=== PATIENT | female | born 1940 | race Hispanic/Latino ===

== ENCOUNTER 2017-09-10 14:51 | Emergency (ER) | payer OTHER ==
[2017-09-10 14:52] VITALS: BMI 26.4
[2017-09-10 15:22] VITALS: BP 129/81; PULSE 90; RESP 18; TEMP 98.1; O2SAT 98
[2017-09-10] MEDS ORDERED: Naproxen 500 MG TAB PO ONE ×2 (15:49→15:57)
--- NOTE | 2017-09-10 16:13 | ED PDOC ---
HPI: General Adult Time Seen by Provider: 09/10/17 15:40 Chief Complaint (Nursing): Palpitations Chief Complaint (Provider): Right shoulder pain History Per: Patient History/Exam Limitations: no limitations Onset/Duration Of Symptoms: Days (x 3) Current Symptoms Are (Timing): Still Present Additional Complaint(s): 77 year old female with a past medical history of osteoarthritis presents to the ED complaining of right shoulder pain, onset 3 days ago. Patient takes Advil without complete relief. Last dose was last night. Patient regularly takes calcium, vitamin D and aspirin. She denies any incident of fall, trauma or overexertion, chest pain and shortness of breath. PMD: Dr. Berot Pitts Past Medical History Reviewed: Historical Data, Nursing Documentation, Vital Signs Vital Signs: Last Vital Signs Temp 98.1 F 09/10/17 15:20 Pulse 90 09/10/17 15:20 Resp 18 09/10/17 15:20 BP 129/81 09/10/17 15:20 Pulse Ox 98 09/10/17 17:35 - Medical History PMH: Arthritis, HTN - Surgical History Other surgeries: tubal ligation (years ago), soft tissue back surgery - Family History Family History: States: Hypertension - Home Medications Home Medications: Ambulatory Orders Medication Instructions Recorded Acetaminophen [Tylenol 325mg tab] 650 mg PO QID #50 tab 09/10/17 Lidocaine 5% [Lidoderm] 1 patch TD DAILY #10 patch 09/10/17 - Allergies Allergies/Adverse Reactions: Allergies Allergy/AdvReac Type Severity Reaction Status Date / Time Penicillins Allergy RASH Verified 09/10/17 15:20 Review of Systems ROS Statement: Except As Marked, All Systems Reviewed And Found Negative Cardiovascular: Negative for: Chest Pain Respiratory: Negative for: Shortness of Breath Musculoskeletal: Positive for: Shoulder Pain (right) Physical Exam - Reviewed Nursing Documentation Reviewed: Yes Vital Signs Reviewed: Yes - Physical Exam Appears: Positive for: Non-toxic, No Acute Distress Head Exam: Positive for: ATRAUMATIC, NORMOCEPHALIC Skin: Positive for: Normal Color, Warm, Dry Eye Exam: Positive for: EOMI, Normal appearance, PERRL Neck: Positive for: Normal, Painless ROM, Supple Cardiovascular/Chest: Positive for: Regular Rate, Rhythm. Negative for: Murmur Respiratory: Positive for: Normal Breath Sounds. Negative for: Respiratory Distress Gastrointestinal/Abdominal: Positive for: Normal Exam, Soft. Negative for: Tenderness Extremity: Positive for: Normal ROM (full at right shoulder), Tenderness ( palpable tenderness in right shoulder) Neurologic/Psych: Positive for: Alert, Oriented. Negative for: Motor/Sensory Deficits - ECG O2 Sat by Pulse Oximetry: 98 (RA) Pulse Ox Interpretation: Normal - Radiology X-Ray: Viewed By Me, Read By Radiologist X-Ray Interpretation: No Acute Disease - Progress Re-evaluation Time: 17:30 Condition: Improving,but remains with symptoms Medical Decision Making Medical Decision Making: Time: 15:49 Impression: right shoulder pain most likely osteoarthritis. Less likely: possible fracture, calcification Initial Plan: --Naproxen 500 mg PO --right shoulder x-ray Right shoulder x-ray FINDINGS: BONES: Normal. No fracture. JOINTS: Normal. Glenohumeral and acromioclavicular joints preserved. No osteoarthritis. SOFT TISSUES: Normal. OTHER FINDINGS: None. IMPRESSION: Normal radiographs of the right shoulder. Scribe Attestation: Documented by Brielle Barnett, acting as a scribe for Elda Cowan MD. Provider Scribe Attestation: All medical record entries made by the Scribe were at my direction and personally dictated by me. I have reviewed the chart and agree that the record accurately reflects my personal performance of the history, physical exam, medical decision making, and the department course for this patient. I have also personally directed, reviewed, and agree with the discharge instructions and disposition. Disposition - Clinical Impression Clinical Impression: DJD of shoulder - Patient ED Disposition Is Patient to be Admitted: No Doctor Will See Patient In The: Office Counseled Patient/Family Regarding: Diagnosis, Need For Followup, Rx Given - Disposition Referrals: Berto Pitts MD [Staff Provider] - Disposition: Routine/Home Disposition Time: 17:54 Condition: STABLE Prescriptions: Acetaminophen [Tylenol 325mg tab] 650 mg PO QID #50 tab Lidocaine 5% [Lidoderm] 1 patch TD DAILY #10 patch Instructions: Osteoarthritis Forms: [facility] (Bulgarian) Print Language: REX HIGUER[place] Present On Arrival: Avelino
--- NOTE | 2017-09-10 17:29 | RAD ---
PROCEDURE: Radiographs of the Right Shoulder HISTORY: pain x 3 days COMPARISON: No prior. FINDINGS: BONES: Normal. No fracture. JOINTS: Normal. Glenohumeral and acromioclavicular joints preserved. No osteoarthritis. SOFT TISSUES: Normal. OTHER FINDINGS: None. IMPRESSION: Normal radiographs of the right shoulder.
== END 2017-09-10 18:25 | disposition home or self-care (01) ==
LOC: H.ER 14:51
DX: M19.011 Primary osteoarthritis, right shoulder (principal); I10 Essential (primary) hypertension; Z88.0 Allergy status to penicillin

== ENCOUNTER 2018-05-18 10:38 | Emergency (ER) | payer OTHER ==
[2018-05-18 10:38] VITALS: BMI 26.4
[2018-05-18 10:42] VITALS: TEMP 98.4; O2SAT 98
--- NOTE | 2018-05-18 10:54 | ED PDOC ---
HPI: Female Pain Time Seen by Provider: 05/18/18 10:48 Chief Complaint (Provider): Genitourinary Problem History Per: Patient History/Exam Limitations: no limitations Onset/Duration Of Symptoms: Days (x 3) Current Symptoms Are (Timing): Still Present Associated Symptoms: Urinary Symptoms (dysuria and frequency ) Additional Complaint(s): 77 year old female with a history of arthritis and hypertension presents to the ED with dysuria and frequency for the last 3 days. Patient denies fever, back pain and vomiting. PMD: Dr. Alessandro Nunez Past Medical History Reviewed: Historical Data, Nursing Documentation, Vital Signs Vital Signs: Last Vital Signs Temp 98.4 F 05/18/18 10:40 Pulse 85 05/18/18 10:40 Resp 17 05/18/18 10:40 BP 173/88 H 05/18/18 10:40 Pulse Ox 98 05/18/18 10:40 - Medical History PMH: Arthritis, HTN - Surgical History Surgical History: No Surg Hx - Family History Family History: States: Hypertension - Home Medications Home Medications: Ambulatory Orders Medication Instructions Recorded Acetaminophen [Tylenol 325mg tab] 650 mg PO QID #50 tab 09/10/17 Lidocaine 5% [Lidoderm] 1 patch TD DAILY #10 patch 09/10/17 Sulfamethoxazole/Trimethoprim 1 tab PO BID #20 tab 05/18/18 [Bactrim DS 800 mg-160 mg] - Allergies Allergies/Adverse Reactions: Allergies Allergy/AdvReac Type Severity Reaction Status Date / Time Penicillins Allergy RASH Verified 09/10/17 15:20 Review of Systems ROS Statement: Except As Marked, All Systems Reviewed And Found Negative Constitutional: Negative for: Fever Gastrointestinal: Negative for: Vomiting Genitourinary Female: Positive for: Dysuria, Frequency Musculoskeletal: Negative for: Back Pain Physical Exam - Reviewed Nursing Documentation Reviewed: Yes Vital Signs Reviewed: Yes - Physical Exam Appears: Positive for: Non-toxic, No Acute Distress Head Exam: Positive for: ATRAUMATIC, NORMAL INSPECTION, NORMOCEPHALIC Skin: Positive for: Normal Color, Warm, Dry Eye Exam: Positive for: EOMI, Normal appearance, PERRL Neck: Positive for: Normal, Painless ROM, Supple Cardiovascular/Chest: Positive for: Regular Rate, Rhythm. Negative for: Murmur Respiratory: Positive for: Normal Breath Sounds. Negative for: Respiratory Distress Gastrointestinal/Abdominal: Positive for: Normal Exam, Soft. Negative for: Tenderness Back: Positive for: Normal Inspection. Negative for: L CVA Tenderness, R CVA Tenderness Extremity: Positive for: Normal ROM (upper and lower extremities). Negative for: Tenderness, Deformity Neurologic/Psych: Positive for: Alert, Oriented (x 3). Negative for: Motor/Sensory Deficits - ECG O2 Sat by Pulse Oximetry: 98 (RA) Pulse Ox Interpretation: Normal Medical Decision Making Medical Decision Makin:53 Initial Plan: --urine dip --urine cx --UA ------- Scribe Attestation: Documented by Brielle Barnett, acting as a scribe for Matt Juarez MD Provider Scribe Attestation: All medical record entries made by the Scribe were at my direction and personally dictated by me. I have reviewed the chart and agree that the record accurately reflects my personal performance of the history, physical exam, medical decision making, and the department course for this patient. I have also personally directed, reviewed, and agree with the discharge instructions and disposition. Disposition - Clinical Impression Clinical Impression: Urinary tract infection - Patient ED Disposition Is Patient to be Admitted: No Counseled Patient/Family Regarding: Studies Performed, Diagnosis, Need For Followup, Rx Given - Disposition Referrals: [facility] [Outside] Olivier Sexton MD [Medical Doctor] - Disposition: Routine/Home Disposition Time: 11:09 Condition: FAIR Prescriptions: Sulfamethoxazole/Trimethoprim [Bactrim DS 800 mg-160 mg] 1 tab PO BID #20 tab Instructions: Urinary Tract Infections in Adults Print Language: PASHTO
[2018-05-18 11:28] LABS: SQUAMOUS EPITHIAL 2 /hpf (0-5); URINE BILIRUBIN NEGATIVE (NEGATIVE); URINE BLOOD MODERATE (NEGATIVE); URINE CLARITY CLEAR (Clear); URINE COLOR STRAW (YELLOW); URINE GLUCOSE (UA) NEG (Normal); URINE LEUKOCYTE ESTERASE NEG Leu/uL (Negative); URINE PROTEIN NEGATIVE (NEGATIVE); URINE UROBILINOGEN 0.2-1.0 mg/dL (0.2-1.0)
[2018-05-18 11:31] VITALS: BP 164/82; PULSE 81; RESP 18
== END 2018-05-18 11:30 | disposition home or self-care (01) ==
LOC: H.ER 10:38
DX: N39.0 Urinary tract infection, site not specified (principal); I10 Essential (primary) hypertension; Z88.0 Allergy status to penicillin

== ENCOUNTER 2018-07-21 18:24 | Emergency (ER) | payer OTHER ==
[2018-07-21 18:24] VITALS: BMI 26.4
[2018-07-21 18:40] VITALS: RESP 18
--- NOTE | 2018-07-21 19:30 | ED PDOC ---
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 for evaluation of abdominal pain and vaginal bleeding for months. Was seen by her PMD Dr. Combs on 07/18/17 and was given instructions to followup with Dr. Lambert, ELEVATOR DISPATCHER, for possible malignancy but patient did not read the form properly and instead came to the emergency room. Pain and bleeding is not worse now than before, states she's only bleeding a little. Has occasional nausea and vomiting. No fevers. PMD: Dr. Combs Past Medical History Vital Signs: Last Vital Signs Temp 97.6 F 07/21/18 18:32 Pulse 92 H 07/21/18 18:32 Resp 18 07/21/18 18:32 BP 162/95 H 07/21/18 18:32 Pulse Ox 97 07/21/18 18:32 - Medical History PMH: Arthritis, HTN - Family History Family History: States: Hypertension - Home Medications Home Medications: Ambulatory Orders Medication Instructions Recorded Acetaminophen [Tylenol 325mg tab] 650 mg PO QID #50 tab 09/10/17 Lidocaine 5% [Lidoderm] 1 patch TD DAILY #10 patch 09/10/17 Sulfamethoxazole/Trimethoprim 1 tab PO BID #20 tab 05/18/18 [Bactrim DS 800 mg-160 mg] - Allergies Allergies/Adverse Reactions: Allergies Allergy/AdvReac Type Severity Reaction Status Date / Time Penicillins Allergy RASH Verified 07/21/18 18:40 Review of Systems ROS Statement: Except As Marked, All Systems Reviewed And Found Negative Gastrointestinal: Positive for: Abdominal Pain Genitourinary Female: Positive for: Vaginal Bleeding Physical Exam - Reviewed Nursing Documentation Reviewed: Yes Vital Signs Reviewed: Yes - Physical Exam Appears: Positive for: Well, Non-toxic, No Acute Distress Head Exam: Positive for: ATRAUMATIC, NORMAL INSPECTION, NORMOCEPHALIC Skin: Positive for: Normal Color, Warm, DRY Eye Exam: Positive for: EOMI, Normal appearance, PERRL ENT: Positive for: Normal ENT Inspection Neck: Positive for: Normal, Painless ROM Cardiovascular/Chest: Positive for: Regular Rate, Rhythm Respiratory: Positive for: CNT, Normal Breath Sounds Gastrointestinal/Abdominal: Positive for: Soft, Tenderness (Lower abdominal tenderness), Distended. Negative for: Mass, Guarding, Rebound, Hernia, Asicites Back: Positive for: Normal Inspection Extremity: Positive for: Normal ROM Neurologic/Psych: Positive for: Alert, Oriented - Laboratory Results Result Diagrams: 07/21/18 19:37 - ECG O2 Sat by Pulse Oximetry: 97 Pulse Ox Interpretation: Normal Medical Decision Making Medical Decision Makin78 year old F presenting with VB and abdominal pain x 3 months --Patient is very well appearing, stable vitals --Bleeding could be related to uterine/cervical cancer --Will obtain CBC to eval for anemia and U/S to eval for abnormality of ELEVATOR DISPATCHER tract 10PM --Son is now in ED and tells staff that she has already had an U/S and that she will followup with Dr. Lambert as scheduled --Patient does not want to wait in ER any longer, asking to be discharged --Well appearing upon discharge, no anemia, no UTI Disposition - Clinical Impression Clinical Impression: Pelvic pain - Patient ED Disposition Is Patient to be Admitted: No - Disposition Referrals: Leo Lambert MD [Staff Provider] - Disposition: Routine/Home Disposition Time: 22:05 Condition: GOOD Instructions: Acute Pelvic Pain Forms: [facility] (Belarusian) Print Language: CZECH
[2018-07-21 20:08] LABS: HEMOGLOBIN 12.9 g/dL (12.0-16.0); MEAN CELL VOLUME 83.6 fl (81.0-99.0); MEAN CORPUSCULAR HEMOGLOBIN 26.9 pg (27.0-31.0); MEAN CORPUSCULAR HGB CONC 32.2 g/dL (33.0-37.0); RBC 4.79 Mil/uL (3.80-5.20); RED CELL DISTRIBUTION WIDTH 14.7 % (11.5-14.5); WHITE BLOOD COUNT 5.9 K/uL (4.8-10.8)
[2018-07-21 20:15] LABS: SQUAMOUS EPITHIAL 2 /hpf (0-5); URINE BILIRUBIN NEGATIVE (NEGATIVE); URINE BLOOD SMALL (NEGATIVE); URINE CLARITY CLEAR (Clear); URINE COLOR YELLOW (YELLOW); URINE GLUCOSE (UA) NEG (NEGATIVE); URINE LEUKOCYTE ESTERASE NEG Leu/uL (Negative); URINE PROTEIN 30 mg/dL (NEGATIVE); URINE UROBILINOGEN 0.2-1.0 mg/dL (0.2-1.0)
[2018-07-21 22:35] VITALS: BP 151/90; PULSE 86; TEMP 98; O2SAT 99
== END 2018-07-21 22:15 | disposition home or self-care (01) ==
LOC: H.ER 18:24
DX: R10.2 Pelvic and perineal pain (principal); I10 Essential (primary) hypertension; Z88.0 Allergy status to penicillin